=== PATIENT | male | born 1960 | race Caucasian/White ===

== ENCOUNTER 2018-01-06 08:51 | Day surgery (SDC) | payer OTHER ==
[~2018-01-06] VITALS: Ht 182.9 cm; Wt 94.1 kg
[2018-01-06] MEDS ORDERED: DESV50 PO (09:27)
[2018-01-06] MEDS ORDERED: ZOLP5 PO (09:28)
[2018-01-06] MEDS ORDERED: LORA.5 PO (09:28)
== END 2018-01-06 12:15 | disposition home or self-care (01) ==
LOC: ORSCSDS 08:51
PROVIDERS: Orthopaedic Surgery
PROC: 0MB30ZZ Excision of Right Elbow Bursa and Ligament, Open Approach (ICD-10-PCS; principal; 2018-01-06 09:45)
DX: M25.721 Osteophyte, right elbow (principal); M10.021 Idiopathic gout, right elbow; Z79.899 Other long term (current) drug therapy
CPT/HCPCS: 88305; J0690; J1100; J1885; J2250; J2405; J3010; J7120

== ENCOUNTER 2021-02-02 14:00 | Emergency (ER) | payer OTHER ==
[~2021-02-02] VITALS: Ht 182.9 cm; Wt 90.7 kg
[~2021-02-02 14:00] MED LIST: DESV50 PO; LORA.5 PO; ZOLP5 PO
[2021-02-02 14:36] LABS: BASOPHILS ABSOLUTE AUTO 0.09 K/mm3 (0.00-0.23); BASOPHILS PERCENT AUTO 2 % (0-2); EOSINOPHILS ABSOLUTE AUTO 0.17 K/mm3 (0.00-0.68); EOSINOPHILS PERCENT AUTO 3 % (0-6); Hematocrit 46.4 % (37.0-53.0); Hemoglobin 16.3 g/dL (13.5-17.5); IMMATURE GRAN ABSOLUTE AUTO 0.01 K/mm3 (0.00-0.10); IMMATURE GRAN PERCENT AUTO 0 % (0-1); LYMPHOCYTES ABSOLUTE AUTO 1.32 K/mm3 (0.84-5.20); LYMPHOCYTES PERCENT AUTO 22 % (21-46); MONOCYTES ABSOLUTE AUTO 0.57 K/mm3 (0.16-1.47); MONOCYTES PERCENT AUTO 9 % (4-13); Mean Corpuscular HGB 31.7 pg (26.0-34.0); Mean Corpuscular HGB Conc 35.1 g/dL (31.5-36.5); Mean Corpuscular Volume 90 fL (80-100); Mean Platelet Volume 9.5 fL (9.1-12.4); NEUTROPHILS ABSOLUTE AUTO 3.99 K/mm3 (1.96-9.15); NEUTROPHILS PERCENT AUTO 65 % (41-73); Platelet Count 264 K/mm3 (150-400); RDW Coefficient Variation 12.4 % (11.7-14.2); RDW Standard Deviation 41.1 fL (35.1-46.3); Red Blood Cell Count 5.15 M/mm3 (4.30-5.90); White Blood Cell Count 6.15 K/mm3 (4.00-11.30)
[2021-02-02 14:55] LABS: Alanine Aminotransfer (ALT/SGP 28 U/L (12-78); Albumin/Globulin Ratio 0.9 (0.8-1.8); Alk Phos 81 U/L (50-136); Anion Gap 7 mmol/L (6-16); Aspartate Aminotrans (AST/SGOT 25 U/L (12-37); Bilirubin, Total 0.6 mg/dL (0.1-1.0); Blood Urea Nitrogen 10 mg/dL (8-24); Bun/Creatinine Ratio 10.4 (12.0-20.0); CO2, Blood 23 mmol/L (21-32); Calcium, Blood 8.7 mg/dL (8.5-10.1); Chloride, Blood 107 mmol/L (98-108); Creatinine, Blood 0.97 mg/dL (0.60-1.20); Globulin, Blood 4.3 g/dL (2.2-4.0); Glomerular Filtration Rate >60 (60-); Glucose, Blood 97 mg/dL (70-99); Potassium, Blood 3.9 mmol/L (3.5-5.5); Sodium, Blood 137 mmol/L (136-145); Total Protein, Blood 8.3 g/dL (6.4-8.2); Troponin I <0.015 ng/mL (0.000-0.040)
== END 2021-02-02 16:20 | disposition left against medical advice (07) ==
LOC: ER 14:00
PROVIDERS: Emergency Medicine Emergency Medical Services
DX: Z53.21 Procedure and treatment not carried out due to patient leaving prior to being seen by health care provider (principal)
CPT/HCPCS: 36415; 80053; 84484; 85025; 93005; 93010; 99282-25

== ENCOUNTER 2022-01-01 14:36 | Emergency (ER) | payer OTHER ==
[~2022-01-01] VITALS: Ht 182.9 cm; Wt 90.7 kg
== END 2022-01-01 20:18 | disposition home or self-care (01) ==
LOC: ER 14:36
DX: M79.604 Pain in right leg (principal); M79.641 Pain in right hand; R60.0 Localized edema; F41.9 Anxiety disorder, unspecified; Z79.899 Other long term (current) drug therapy
CPT/HCPCS: 73130; 93971

== ENCOUNTER 2024-07-25 12:58 | Emergency (ER) | payer OTHER ==
[~2024-07-25] VITALS: Ht 185.4 cm; Wt 93.4 kg
[2024-07-25 13:32] VITALS: BP 139/100
[2024-07-25] MEDS ORDERED: OxyCODONE 7.5 mg/Acetam 325 mg TABLET PO ONE (17:10)
[2024-07-25] MEDS ORDERED: RX Prepack 6 Tabs Oxycodone 5mg UD ONE (17:10)
[2024-07-25] MEDS ORDERED: OXYACE7.5T PO (17:10)
== END 2024-07-25 17:51 | disposition home or self-care (01) ==
LOC: ER 12:58
DX: S53.005A Unspecified dislocation of left radial head, initial encounter (principal); Z79.899 Other long term (current) drug therapy; W18.2XXA Fall in (into) shower or empty bathtub, initial encounter
CPT/HCPCS: 24655; 73080; 99283-25; A9270